=== PATIENT | male | born 1960 | race African-American/Black ===

== ENCOUNTER 2021-11-02 11:02 | Inpatient (IN) | payer BC, OTHER ==
[2021-11-02 11:58] VITALS: BMI 23.6
[2021-11-02] MEDS ORDERED: DICYCLOMINE HCL 10 MG CAPSULE PO PRN (13:05)
[2021-11-02] MEDS ORDERED: chlordiazePOXIDE HCL 25 MG CAPSULE PO PRN (13:05)
[2021-11-02] MEDS ORDERED: NICOTINE POLACRILEX 2 MG GUM BUC PRN (13:05)
[2021-11-02] MEDS ORDERED: ACETAMINOPHEN 325 MG TABLET (FP) PO PRN ×2 (13:05)
[2021-11-02] MEDS ORDERED: MAG HYDROX/AL HYDROX/SIMETH 30 ML UNIT-DOSE CUP PO PRN (13:05)
[2021-11-02] MEDS ORDERED: IBUPROFEN 400 MG TABLET (FP) PO PRN (13:05)
[2021-11-02] MEDS ORDERED: LOPERAMIDE HCL 2 MG CAPSULE PO PRN (13:05)
[2021-11-02] MEDS ORDERED: BISMUTH SUBSALICYLATE 262 MG/15 ML BTL PO PRN (13:05)
[2021-11-02] MEDS ORDERED: MAGNESIUM HYDROX 2400MG/30ML ORAL SUSPENSION 30 ML CUP PO PRN (13:05)
[2021-11-02] MEDS ORDERED: MAGNESIUM CITRATE 300 ML BOTTLE PO PRN (13:05)
[2021-11-02] MEDS ORDERED: METHOCARBAMOL 500 MG TABLET PO PRN (13:05)
[2021-11-02] MEDS ORDERED: BENZOCAINE/MENTHOL (CHLORASEPTIC ) LOZENGE MM PRN (13:05)
[2021-11-02] MEDS ORDERED: IBUPROFEN 600 MG TABLET (FP) PO PRN (13:05)
[2021-11-02] MEDS ORDERED: NICOTINE 10 MG CARTRIDGE (INHALER) IH PRN (13:05)
[2021-11-02] MEDS ORDERED: ONDANSETRON *ODT* 4 MG TABLET SL PRN (13:05)
[2021-11-02] MEDS: hydrOXYzine PAMOATE 25 MG CAPSULE (FP) PO SCH ×3 (14:32→22:37)
[2021-11-02] MEDS: PRENATAL VITAMINS W/ FOLIC ACID TABLET (FP) PO SCH (14:32)
[2021-11-02] MEDS: chlordiazePOXIDE HCL 25 MG CAPSULE PO SCH ×2 (17:48→22:33)
[2021-11-02] MEDS: MELATONIN 5 MG TABLETS PO SCH (22:34)
[2021-11-02] MEDS: THIAMINE HCL 100 MG TABLET (FP) PO SCH (22:34)
[2021-11-03] MEDS: hydrOXYzine PAMOATE 25 MG CAPSULE (FP) PO SCH ×5 (06:14→23:08)
[2021-11-03] MEDS: chlordiazePOXIDE HCL 25 MG CAPSULE PO SCH ×4 (06:15→23:08)
[2021-11-03] MEDS: PRENATAL VITAMINS W/ FOLIC ACID TABLET (FP) PO SCH (10:22)
[2021-11-03 11:57] LABS: HEMATOCRIT 42.9 % (35.4-49); HEMOGLOBIN 13.8 GM/dL (11.7-16.9); MCH 27.9 pg (25.7-33.7); MCHC 32.2 g/dl (32.0-35.9); MEAN CELL VOLUME 86.7 fl (80-96); MEAN PLT VOLUME 8.3 fl (7.5-11.1); PLATELET COUNT 242 10^3/uL (134-434); RBC 4.95 M/mm3 (4.00-5.60); RDW 13.7 % (11.9-15.9); WHITE BLOOD COUNT 5.3 K/mm3 (4.0-10.0)
[2021-11-03 12:07] LABS: CALCIUM 9.2 mg/dL (8.5-10.1)
[2021-11-03 12:08] LABS: ALBUMIN 3.6 g/dl (3.4-5.0); BLOOD UREA NITROGEN 13.4 mg/dL (7-18)
[2021-11-03 12:12] LABS: CREATININE 0.9 mg/dL (0.55-1.3)
[2021-11-03 12:14] LABS: BILIRUBIN,TOTAL 0.5 mg/dL (0.2-1); TOT PROT 7.1 g/dl (6.4-8.2)
[2021-11-03] MEDS ORDERED: QUEtiapine FUMARATE 100 MG TABLET (FP) PO SCH (22:00)
[2021-11-03] MEDS: QUEtiapine FUMARATE 50 MG TABLET PO SCH (23:08)
[2021-11-03] MEDS: THIAMINE HCL 100 MG TABLET (FP) PO SCH (23:08)
[2021-11-03] MEDS: MELATONIN 5 MG TABLETS PO SCH (23:08)
[2021-11-04] MEDS: chlordiazePOXIDE HCL 25 MG CAPSULE PO SCH ×5 (06:33→23:12)
[2021-11-04] MEDS: hydrOXYzine PAMOATE 25 MG CAPSULE (FP) PO SCH ×6 (06:34→23:12)
[2021-11-04] MEDS: PRENATAL VITAMINS W/ FOLIC ACID TABLET (FP) PO SCH (12:18)
[2021-11-04] MEDS: MELATONIN 5 MG TABLETS PO SCH (23:12)
[2021-11-04] MEDS: QUEtiapine FUMARATE 50 MG TABLET PO SCH (23:12)
[2021-11-04] MEDS: THIAMINE HCL 100 MG TABLET (FP) PO SCH (23:12)
[2021-11-05] MEDS ORDERED: chlordiazePOXIDE HCL 10 MG CAPSULE PO PRN
[2021-11-05] MEDS: chlordiazePOXIDE HCL 10 MG CAPSULE PO SCH ×4 (07:00→22:54)
[2021-11-05] MEDS: hydrOXYzine PAMOATE 25 MG CAPSULE (FP) PO SCH ×5 (07:01→22:55)
[2021-11-05] MEDS: PRENATAL VITAMINS W/ FOLIC ACID TABLET (FP) PO SCH (11:27)
[2021-11-05] MEDS: QUEtiapine FUMARATE 50 MG TABLET PO SCH (22:55)
[2021-11-05] MEDS: THIAMINE HCL 100 MG TABLET (FP) PO SCH (22:55)
[2021-11-05] MEDS: MELATONIN 5 MG TABLETS PO SCH (22:55)
[2021-11-06] MEDS: hydrOXYzine PAMOATE 25 MG CAPSULE (FP) PO SCH ×5 (05:26→22:50)
[2021-11-06] MEDS: chlordiazePOXIDE HCL 10 MG CAPSULE PO SCH ×2 (05:26→18:31)
[2021-11-06] MEDS: PRENATAL VITAMINS W/ FOLIC ACID TABLET (FP) PO SCH (11:17)
[2021-11-06] MEDS: QUEtiapine FUMARATE 50 MG TABLET PO SCH (22:49)
[2021-11-06] MEDS: MELATONIN 5 MG TABLETS PO SCH (22:49)
[2021-11-06] MEDS: THIAMINE HCL 100 MG TABLET (FP) PO SCH (22:49)
[2021-11-07] MEDS ORDERED: chlordiazePOXIDE HCL 10 MG CAPSULE PO ONE (05:00)
[2021-11-07 05:53] VITALS: RESP 18
[2021-11-07] MEDS: hydrOXYzine PAMOATE 25 MG CAPSULE (FP) PO SCH ×2 (07:44→10:56)
[2021-11-07 09:35] VITALS: BP 122/64; PULSE 92; TEMP 96.9
[2021-11-07] MEDS: PRENATAL VITAMINS W/ FOLIC ACID TABLET (FP) PO SCH (10:56)
== END 2021-11-07 12:00 | disposition home or self-care (01) | DRG 897 ==
LOC: YASAS 11:02 → SUATTDRO 11:02 → Y6N 13:24
PROVIDERS: ADMIT Allergy & Immunology; ATTEND Surgery
PROC: HZ2ZZZZ Detoxification Services for Substance Abuse Treatment (ICD-10-PCS; principal; 2021-11-02)
DX: F10.230 Alcohol dependence with withdrawal, uncomplicated (principal); F14.20 Cocaine dependence, uncomplicated; F19.282 Other psychoactive substance dependence with psychoactive substance-induced sleep disorder; F17.210 Nicotine dependence, cigarettes, uncomplicated; F19.24 Other psychoactive substance dependence with psychoactive substance-induced mood disorder; F39 Unspecified mood [affective] disorder; G35 Multiple sclerosis; G62.9 Polyneuropathy, unspecified; Z62.810 Personal history of physical and sexual abuse in childhood; W19.XXXA Unspecified fall, initial encounter; Y92.231 Patient bathroom in hospital as the place of occurrence of the external cause; Z99.89 Dependence on other enabling machines and devices; Z91.410 Personal history of adult physical and sexual abuse
CPT/HCPCS: 36415; 80053; 85027; 86780; C9803-CS; U0003; U0005